=== PATIENT | female | born 1945 | race Caucasian/White ===

== ENCOUNTER → 2017-03-27 | Outpatient (CLI) | payer MEDICARE ==
[~2017-03-27] MED LIST: ASPIR LOW81 MG PO; BENTYL10 MG PO; CLARITIN10 MG PO; CORDROL20 MG PO; FEROSUL325 MG PO; GLUCOPHAGE500 M1 PO; HYDROCODONE BIT1 T11 PO; MEDROL DOSEPAK4 MG PO; METFORMIN HCL500 MG PO; METFORMIN500 MG PO; MONTELUKAST SOD10 MG PO; MOTRIN; NKHM; NO DOLO50 MG/ML; PREDNISONE10 MG PO; PROAIR HFA8.5 GM IH; VIBRA-TAB100 MG PO; VICODIN 5/500 505 MG PO; VICODIN ES 7501 TAB PO
--- NOTE | ~2017-03-27 | PROC NOTE ---
[place], [place] PROCEDURE NOTE NAME: NIKKI CASTANON [facility] #: [id number] UNIT #: [id number] ROOM: DOCTOR: Nina Schultz BIRTHDATE: [birth year] DOS: 03/27/2017 MODIFIED BARIUM SWALLOW STUDY RADIOLOGIST: Dr. Brown. PHYSICIAN: Dr. Escalante at [facility]. Age of 71 years. BACKGROUND MEDICAL HISTORY: The patient is a 71-year-old woman who was referred for a modified barium swallow study due to reports of choking episodes. The patient reported that she is having choking episodes about 2 times per week at this time and when asked if anything helps, she stated that getting in a hot shower and steam helps the food go down. She stated that it will not come back up, but she can help it go down by steam up her nose or hot shower with steam. The patient reported no weight loss. Respiratory status is within normal limits. The patient is currently consuming a regular diet with thin liquids and intake status is by mouth. The patient reported that she has not had a modified barium swallow study in the past and her cognitive responsiveness level was within functional limits as she was able to follow commands and answer questions regarding her medical history and symptoms with no difficulty. The patient was noted with vocal spasms while speaking and reported that these only occur in the morning, at this time and that they stayed throughout the day, which she reported has been occurring for the past 2 months along with choking the episodes. METHODS AND MATERIALS: The patient was seated in the chair and viewed in the lateral plane. She was given thin liquids by cup and by straw as well as pureed soft and regular consistency materials all covered with liquid barosperse for reviewing under fluoroscopy. The patient reported difficulty with swallowing large pills at home and the patient was given the barium pill to assess this at this time. ORAL PHASE: This phase of the swallow was essentially unremarkable. The patient demonstrated adequate labial seal and mastication. Oral transit times were within functional limits and mildly delayed for regular consistency with 4-5 seconds noted. Bolus formation was adequate tongue to palate contact and tongue in the posterior pharyngeal wall contact was adequate. No tongue pumping was noted and velar function was normal as no nasal regurgitation occurred during the assessment. PHARYNGEAL PHASE: This phase of the swallow was also essentially unremarkable and the patient demonstrated an adequate swallow trigger and no to minimum premature loss of bolus. The patient did demonstrate premature loss with thin liquids when given thin or thickened liquids with a bolus of a regular consistency; however, this was managed by the patient and she swallowed in a timely manner. No vallecular stasis was noted before, during or after the swallow and no piriform stasis occurred. Cricopharyngeal function was normal and epiglottic function was normal as no penetration or aspiration occurred [place], [place] PROCED[facility]: [id number] UNIT #: [id number] ROOM: DOCTOR: Nina Schultz BIRTHDATE: [birth year] during this study. The patient demonstrated mild residue with puree consistency after the swallow on the tongue base and was instructed to perform second swallow and all materials were cleared with a second dry swallow. ESOPHAGEAL PHASE: This phase of swallow was not formally assessed at this time; however, the known regurgitation occurred during the assessment from the esophagus. RESULTS AND RECOMMENDATIONS: The patient presents with essentially normal swallow function at this time. No diet changes are recommended. It was reviewed with the patient that residue occurred after the swallow with puree consistency and that it was cleared with a second swallow, so it was recommended that the patient perform a dry swallow intermittently during meals in order to clear any possible residue that would occur during the meal and possibly buildup in the vallecula or laryngeal cavity, the patient stated that she is taking small bites and chewing thoroughly when she eats meals at this time, which was reinforced and the patient expressed understanding and agreement with the recommendations from [employer]. No further speech therapy is recommended; however, it is recommended that the patient follow up with her primary physician regarding the results of this testing. If you have any questions or comments regarding this assessment, please contact the speech pathology department at [phone]. Thank you for this referral. Nina Schultz CM:PROCNOTE:PROCEDURE NOTE [id number] Nina Schultz
== END | disposition home or self-care (01) ==
LOC: RAD/SH 02:40
DX: R13.19 Other dysphagia (principal)

== ENCOUNTER → 2017-05-09 | Outpatient (CLI) | payer MEDICARE | END | disposition home or self-care (01) | LOC: ORTHO 00:32 | DX: M17.12 Unilateral primary osteoarthritis, left knee (principal); M16.12 Unilateral primary osteoarthritis, left hip ==

== ENCOUNTER → 2018-05-03 | Outpatient (CLI) | payer MEDICARE | END | disposition home or self-care (01) | LOC: ORTHO 02:49 | DX: M25.512 Pain in left shoulder (principal) ==

== ENCOUNTER → 2019-04-02 | Outpatient (CLI) | payer MEDICARE ==
[~2019-04-02] MED LIST changes: +ALPRAZOLAM0.25 M2 PO; +CEFUROXIME AXE250 MG PO; +COLACE100 MG PO; +FLAGYL500 MG PO; +GOOD NEIGHBOR P20 MG PO; +HYDROCODONE-AC1 EAC1 PO; +LACTINEX 0.2 MG1 TAB PO; +LASIX20 MG PO; +LISINOPRIL20 MG PO; +LOPRESSOR25 MG PO; +MIRALAX POWDER17 G1 PO; +NYST SUSP PO; +NYSTOP60 GM PO; +OMEPRAZOLE MAGN20 MG PO; +OXYCODONE H5 MG/5 ML PO; +POTASSIUM CHLO20 ME3 PO; +REMERON SOLTAB15 MG PO; +ULTRAM50 MG PO; +VANCOMYCIN250 MG/2.5 PO; +VITAMIN D5000 UNI1 PO; +Zofran4 MG SL
== END | disposition home or self-care (01) ==
LOC: LAB 00:37 → ORTHO 00:37
DX: R79.9 Abnormal finding of blood chemistry, unspecified (principal); R73.9 Hyperglycemia, unspecified

== ENCOUNTER → 2019-04-07 | Outpatient (CLI) | payer MEDICARE | END | disposition home or self-care (01) | LOC: MRI 13:00 | DX: S43.492A Other sprain of left shoulder joint, initial encounter (principal); M75.52 Bursitis of left shoulder; X58.XXXA Exposure to other specified factors, initial encounter; Y93.89 Activity, other specified; Y92.89 Other specified places as the place of occurrence of the external cause; Y99.8 Other external cause status ==

== ENCOUNTER 2020-08-26 13:55 | Emergency (ER) | payer MEDICARE ==
[~2020-08-26] VITALS: Wt 28.6 kg
== END 2020-08-26 17:48 | disposition expired ==
LOC: ED 13:55
DX: T75.1XXA Unspecified effects of drowning and nonfatal submersion, initial encounter (principal); C15.9 Malignant neoplasm of esophagus, unspecified; R09.2 Respiratory arrest; I10 Essential (primary) hypertension; E11.9 Type 2 diabetes mellitus without complications; Z79.899 Other long term (current) drug therapy; W16.211A Fall in (into) filled bathtub causing drowning and submersion, initial encounter; Y93.89 Activity, other specified; Y92.89 Other specified places as the place of occurrence of the external cause; Y99.8 Other external cause status